=== PATIENT | female | born 1985 | race Caucasian/White ===

== ENCOUNTER 2016-08-15 17:21 | Emergency (ER) | payer MEDICAID ==
[~2016-08-15] VITALS: Ht 157.5 cm; Wt 60.0 kg
[2016-08-15] MEDS ORDERED: TETRACAINE 0.5% OPHTH DROPS 4ML OP ONE (22:15)
[2016-08-15] MEDS ORDERED: FLUORESCEIN SODIUM 1MG/STRIP OP ONE (22:15)
[2016-08-15] MEDS ORDERED: KETOROLAC 60MG/2ML VIAL IM ONE (22:15)
[2016-08-16 03:49] VITALS: BP 115/74
== END 2016-08-16 04:37 | disposition home or self-care (01) ==
LOC: ER 21:52
DX: H10.9 Unspecified conjunctivitis (principal)
CPT/HCPCS: 81025; 99283; J1885; Z7610